=== PATIENT | male | born 1940 | race Caucasian/White ===

== ENCOUNTER → 2023-07-24 12:49 | Outpatient (REF) | payer MEDICARE, OTHER, SELFPAY | LOC: RCS 12:49 | PROVIDERS: ATTENDING PHYSICIAN Internal Medicine Interventional Cardiology; FAMILY PHYSICIAN Family Medicine | DX: I35.0 Nonrheumatic aortic (valve) stenosis (principal) | CPT/HCPCS: 93306 ==

== ENCOUNTER 2023-09-24 16:22 | Emergency (ER) | payer SELFPAY ==
[2023-09-24 16:34] VITALS: BP 155/74
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
== END 2023-09-24 18:05 | disposition home or self-care (01) ==
LOC: EMR 16:22
PROVIDERS: EMERGENCY PHYSICIAN Emergency Medicine; FAMILY PHYSICIAN Family Medicine
DX: S13.4XXA Sprain of ligaments of cervical spine, initial encounter (principal); V47.5XXA Car driver injured in collision with fixed or stationary object in traffic accident, initial encounter; I25.10 Atherosclerotic heart disease of native coronary artery without angina pectoris; I10 Essential (primary) hypertension; E78.00 Pure hypercholesterolemia, unspecified; E11.9 Type 2 diabetes mellitus without complications; Z86.73 Personal history of transient ischemic attack (TIA), and cerebral infarction without residual deficits
CPT/HCPCS: 99284; 70450; 72125

== ENCOUNTER 2024-05-19 13:56 | Emergency (ER) | payer OTHER, MEDICARE, SELFPAY ==
[2024-05-19] VITALS (7 sets, daily range): BP systolic 113–161; BP diastolic 68–98; BMI 23.5
[2024-05-19 14:22] LABS: % Basophils 0.4 % (0-2); % Eosinophils 1.4 % (0-6); % Immature Granulocytes 0.8 % (0-0.5); % Lymphocytes 15.5 % (20.5-51.1); % Monocytes 6.4 % (1.7-9.3); % Neutrophils 75.5 % (42.2-75.2); Absolute Eosinophils 0.1 10^3/uL (0-0.7); Absolute Immature Granulocytes 0.1 10^3/uL (0-0.05); Absolute Lymphocytes 1.2 10^3/uL (1.2-3.4); Absolute Monocytes 0.5 10^3/uL (0.1-0.6); Absolute Neutrophils 5.8 10^3/uL (1.4-6.5); Hematocrit 39.1 % (39.0-52.0); Hemoglobin 13.2 g/dL (13.0-18.0); Mean Corp Hgb Conc. 33.8 g/dL (33.0-37.0); Mean Corpuscular Hgb 29.5 pg (27.0-31.0); Mean Corpuscular Volume 87.3 fL (80.0-94.0); Mean Platelet Volume 9.8 fL (7.4-10.4); Nucleated Red Blood Cells % 0 % (-); Platelet Count 259 10^3/uL (130-400); Red Blood Cell Count 4.48 10^6/uL (4.70-6.10); Red Cell Dist. Width 13.4 % (11.5-14.5); White Blood Cell Count 7.7 10^3/uL (4.8-10.8)
[2024-05-19 14:40] LABS: ALT (SGPT) 24 U/L (0-50); AST (SGOT) 26 U/L (17-59); Albumin 4.1 g/dl (3.5-5.0); Alkaline Phosphatase 77 U/L (38-126); Blood Urea Nitrogen 27 mg/dl (9-20); Calcium 10.2 mg/dl (8.4-10.2); Carbon Dioxide 18 mmol/L (22-30); Chloride 104 mmol/L (98-107); Glucose 292 mg/dl (70-99); Potassium 4.1 mmol/L (3.5-5.1); Sodium 138 mmol/L (135-145); Total Bilirubin 1.3 mg/dl (0.2-1.3); Total Protein 7.1 g/dl (6.3-8.2); eGFR > 60.00
--- NOTE | 2024-05-19 16:23 | ED.GENMED ---
History of Present Illness
General
Chief Complaint: Abdominal Symptoms
Source: patient
Exam Limitations: none
Time Seen by Provider: 05/19/24 15:44
Nursing documentation reviewed up to this point in time: agreed with
History of Present Illness
History of Present Illness:
83-year-old male presents emergency ferment due to nausea vomiting diarrhea for 4 days. He was seen at urgent care, and sent to the emergency department.
Past History
Past History
ED Past Medical History: CAD, HTN, Hypercholesterolemia and NIDDM
ED Past Surgical History: Cardiac
Social History
Tobacco: Non-smoker
Alcohol: None
Drug: None
Personal: Single
Living: alone
Employment: Retired
Family History
Family History: Other (Noncontributory)
Review of Systems
Review of Systems
Allergies reviewed?: Yes
All Other Systems: Not applicable
Constitutional: Reports no symptoms
EENT: Reports no symptoms
Respiratory: Reports no symptoms
Cardiac: Reports no symptoms
ABD/GI: Reports nausea, vomiting and diarrhea
: Reports no symptoms
Musculoskeletal: Reports no symptoms
Skin: Reports no symptoms
Neurological: Reports no symptoms
Endocrine: Reports no symptoms
Hematologic/Lymphatic: Reports no symptoms
Psychiatric: Reports no symptoms
Phy Exam
Physical Exam
Physical Exam:
Physical Exam
General: no apparent distress, not acutely ill
Neck: supple. no meningeal signs. normal posterior pharynx
Heart: s1/s2 regular rate and rhythm, no murmur. equal radial
pulses.
HEENT: Pupils equal round reactive to light, EOMI
Lungs: no acute respiratory distress. clear bilaterally
Abdomen: normal bowel sounds. not tender. no CVAT
Neuro: alert and oriented. no focal neurological deficits cranial nerves II through XII intact
Skin: no rash
Psychiatric: well kept. interactive and cooperative
Extremities: no edema. no calf tenderness. negative homans. good distal pulses
Course
Orders/Labs/Results
Orders:
Orders
05/19/24 14:14
Complete Blood Count/With Diff Urgent
Comprehensive Metabolic Panel Urgent
05/19/24 16:22
IV Insert/Care/Rem.- Treatment PRN
0.9% Sodium Chloride 250 ml [Nss] 250 ml IV BOLUS
05/19/24 16:23
0.9% Sodium Chloride 500 ml [Nss] 500 ml IV BOLUS
Abnormal Lab Results
05/19/24
14:14
RBC 4.48 L 10^6/uL
(4.70-6.10)
Abs Immat Gran (auto) 0.1 H 10^3/uL
(0-0.05)
Immature Gran % 0.8 H %
(0-0.5)
Neutrophils % 75.5 H %
(42.2-75.2)
Lymphocytes % 15.5 L %
(20.5-51.1)
Carbon Dioxide 18 L mmol/L
(22-30)
BUN 27 H mg/dl
(9-20)
Glucose 292 H mg/dl
(70-99)
05/19/24 14:14
05/19/24 14:14
Vital Signs
Initial and Last Documented VS:
Initial Vital Signs
Temp Pulse Resp BP Pulse Ox
97.6 F 103 18 113/73 97
05/19/24 14:00 05/19/24 14:00 05/19/24 14:00 05/19/24 14:00 05/19/24 14:00
Last Documented Vital Signs
Temp Pulse Resp BP Pulse Ox
97.6 F 103 18 126/68 96
05/19/24 14:00 05/19/24 14:00 05/19/24 14:00 05/19/24 19:00 05/19/24 19:00
MDM/Problems Addressed
Differential Diagnosis Includes:
Viral gastroenteritis, electrolyte deficiency
MDM/Problems Addressed:
83-year-old male with nausea vomiting diarrhea. Abdomen exam benign. Vital signs stable. Stable for discharge.
Chronic conditions affecting care: DM
*Pulse Oximetry
Patient hypoxic: no
*Critical Care Note
Total Time (30-74mins, 75-104mins- exclusive of procedures): Not Applicable
Data Reviewed
Review of Other/Old Records Reveals: Labs
Source: records (creatinine 1.3 on 07/01/21)
Patient Management
Social determinants of health affecting care: Living situation and Strong social support
Escalation/DeEscalation of care consider admission/obs:
admit not indicated
ED Attending Note
-
Portions of this chart may have been created with voice recognition software.� Occasional wrong word or��sound alike� substitutions may have occurred due to the inherent limitations of voice recognition software.
Discharge Plan
Departure
Patient Disposition: Home (Routine Discharge)
Date of Disposition: 05/19/24
Time of Disposition: 19:40
Patient with high blood pressure during this ER visit?: Yes
Condition: Good
Discharge Problem:
Nausea and vomiting
Instructions: Diarrhea in teens and adults, Nausea and Vomiting, Adult (DC), BLOOD PRESSURE
Prescriptions:
No Action
atorvastatin 40 MG tablet
40 mg PO HS
aspirin 325 MG tablet
325 mg PO HS
nitroglycerin 0.4 MG tablet, sublingual
0.4 mg sublingual [id number] PRN (Reason: chest pain)
dutasteride 0.5 MG capsule
0.5 mg PO HS
metformin 1,000 MG tablet extended release 24hr
1,000 mg PO BID
fenofibric acid (choline) 135 MG capsule,delayed release(DR/EC)
135 mg PO DAILY
furosemide 40 MG tablet
40 mg PO Q48H
Patient Comments:
Patient takes 40 mg alternating every other day with 20 mg
terazosin 5 MG capsule
5 mg PO HS
insulin glargine [Lantus U-100 Insulin] 100 UNIT/ML solution
30 unit SQ DAILY
venlafaxine [Effexor XR] 150 MG capsule,extended release 24hr
225 mg PO DAILY
omeprazole 20 MG capsule,delayed release(DR/EC)
20 mg PO DAILY
ezetimibe [Zetia] 10 MG tablet
10 mg PO DAILY
Benazepril Hcl 40 MG Tablet
40 mg PO DAILY
Insulin Aspart [Novolog] 100 UNIT/ML Vial
12 unit SQ DAILY
eszopiclone [Lunesta] 2 MG tablet
2 mg PO HSPRN PRN (Reason: sleep)
furosemide 40 MG tablet
20 mg PO Q48H
Insulin Aspart [Novolog] 100 UNIT/ML Vial
4 unit SQ .DINNER
carvedilol 6.25 MG tablet
6.25 mg PO BID Qty: 180 5RF
isosorbide mononitrate 30 MG tablet extended release 24 hr
30 mg PO DAILY Qty: 90 5RF
Referrals:
Zahida Garcia DO [Family Provider] - Call in 1-3 days for appt
Interventions
Interventions:
*Risk Screen - Suicide Last Done: 05/19/24 14:00
*General Assessment Last Done: 05/19/24 14:00
*Neglect/Abuse Screening Last Done: 05/19/24 14:00
*ED- Fall Risk Assessment Last Done: 05/19/24 16:31
*ED COVID-19 Vaccine History Last Done: 05/19/24 14:00
[id number] Assessment Last Done: 05/19/24 16:32
Discharge Date and Time
Print Language: BULGARIAN
[2024-05-19] MEDS: NSS 500 IV (16:33)
[2024-05-19] MEDS: ZOFRAN 4 MG IV (19:52)
[2024-05-19] MEDS: ZOFRAN ODT (ORALLY DISINTEGRATING) 4 MG PO (19:59)
== END 2024-05-19 20:11 | disposition home or self-care (01) ==
LOC: EMR 13:56
PROVIDERS: Emergency Medicine; EMERGENCY PHYSICIAN Emergency Medicine; FAMILY PHYSICIAN Family Medicine
DX: R11.2 Nausea with vomiting, unspecified (principal); I25.10 Atherosclerotic heart disease of native coronary artery without angina pectoris; I10 Essential (primary) hypertension; E78.00 Pure hypercholesterolemia, unspecified; E11.9 Type 2 diabetes mellitus without complications
CPT/HCPCS: 96374; 96361; 99284; 80053; 85025

== ENCOUNTER 2024-12-25 20:15 | Inpatient (IN) | payer MEDICARE, OTHER, SELFPAY ==
[2024-12-25] VITALS (8 sets, daily range): BP systolic 151–181; BP diastolic 71–150
--- NOTE | 2024-12-25 16:27 | ED.GENMED ---
History of Present Illness
<AMANDA Perez - Last Filed: 12/25/24 21:00>
General
Chief Complaint: Failure to Thrive
Source: ambulance crew
Exam Limitations: none
Time Seen by Provider: 12/25/24 16:27
Nursing documentation reviewed up to this point in time: agreed with
History of Present Illness
History of Present Illness:
Patient is a 4-year-old male with past medical history of hyperlipidemia hypertension CAD, stent, pacemaker, type 2 diabetes chronic kidney disease stage II, brought by EMS. EMS reports patient apparently called 911 multiple times however they were
not able to get a hold of patient. Police were called to scene along with EMS. Patient was found in extreme dirty and poor conditions with feces throughout. Patient apparently had called 911 because he has had nausea vomiting diarrhea. He does
not believe his phone is working. Patient presents awake alert oriented. He reports he had diarrhea and vomiting since Monday. He does live alone. He denies any abdominal pain. He denies any chest pain. Sometimes he feels short of breath with
walking. He feels mildly nauseous now.
Past History
<AMANDA Perez - Last Filed: 12/25/24 21:00>
Past History
ED Past Medical History: CAD, HTN, Hypercholesterolemia and NIDDM
ED Past Surgical History: Cardiac
Social History
Tobacco: Non-smoker
Alcohol: None
Drug: None
Personal: Single
Living: alone
Employment: Retired
Family History
Family History: Other (Noncontributory)
Phy Exam
<AMANDA Perez - Last Filed: 12/25/24 21:00>
General Physical Exam
General Presentation: no apparent distress
General age: appears stated age
General Skin: warm and dry
General Habitus: elderly
General Mental: alert
General Hydration: dry mucous membranes
Cardiovascular Exam
Cardiovascular Exam: regular rate/rhythm and normal peripheral pulses
Pulmonary Exam
Pulmonary Exam: lungs clear and no respiratory distress
Neurological Exam
Neurological Exam: alert, oriented x3, no motor deficits and no sensory deficits
Musculoskeletal Exam
Musculoskeletal Exam: full ROM
Skin Exam
Skin Exam: normal color and warm/dry
Psychiatric Exam
Psychiatric Exam: normal mood/affect
Course
<AMANDA Perez - Last Filed: 12/25/24 21:00>
Orders/Labs/Results
Orders:
Orders
12/25/24
Electrocardiogram (*1) Stat
Comment: DONE EMR
12/25/24 Dinner
Clear Liquid
At Your Request: Full Participation
12/25/24 16:33
IV Insert/Care/Rem.- Treatment PRN
0.9% Sodium Chloride 1000 ml [Nss] 1,000 ml IV BOLUS
12/25/24 16:37
CPK [Creatine Phosphokinase] Urgent
Complete Blood Count/With Diff Urgent
Comprehensive Metabolic Panel Urgent
12/25/24 16:38
Case Management Consult ONCE
Case Management Consult: Discharge Planning
Requested By:: NURSING
12/25/24 16:46
Troponin I Urgent
12/25/24 16:48
Ondansetron Injectable [Zofran] 4 mg IV NOW STA
12/25/24 16:52
CT Head W/o Iv Contrast Urgent
Comment:
Reason For Exam: headache
12/25/24 16:58
Urinalysis Reflex To Culture Urgent
Date Specimen was Collected: 12/25/24
Time Specimen was Collected: 16:56
Urine Microscopic Reflex Cult Urgent
12/25/24 17:01
Straight Cath As Directed
Frequency: One time now
12/25/24 18:09
Aspirin Chewable [Low Strength Aspirin] 324 mg PO NOW STA
12/25/24 18:25
Electrocardiogram (*1) Stat
Reason for Study: Other
Other Reason for Exam: chest pain
EKG- Treatment ONCE
12/25/24 19:56
Admit/Transfer Patient As Directed
Co-Sign Provider:
Level of Care: Inpatient admission
Assign to:: Telemetry
Physician / Group: gary
Diagnosis: gastroenteritis
Reason for Telemetry: Arrhythmia
Date to Stop Telemetry: 12/28/24
Time to Stop Telemetry: 11:00
Reason for Hospitalization: gastroenteritis
Expected length of stay greater than two midnights?: Yes
ELOS- Estimated Length of Stay in days: 2
I certify the patient meets the requirements for IP care: Yes
Code Status As Directed
Resuscitation Status: Full Code
PRN Pain Medication Management As Directed
May give lesser potent ordered pain med per pt: Yes
preference::
Protocol:: Medication orders for pain may be administered in a
manner that supports deferring to patient preference
when the pt is:
- Requesting an ordered lesser potent pain medication.
Least to most potent pain medications are defined
as: acetaminophen < NSAID < tramadol < opioids
(morphine, oxycodone, hydromorphone).
- Requesting a lesser dose of the same medication IF
ORDERED.
- Requesting a less intrusive route of administration
if both routes are prescribed by the provider (PO <
IV).
12/25/24 20:04
CR Chest - 2 Views Urgent
Comment:
Reason For Exam: shortness of breath
12/25/24 20:51
Troponin I Q6H
Acetaminophen [Tylenol] 650 mg PO Q4HPRN PRN
Dextrose 50%-Water [Dextrose 50% Syringe] 12.5 grams IV [id number] PRN
Glucagon [GlucaGen] 1 mg IM PRN PRN
Heparin 5,000 units SC Q12
Ondansetron Injectable [Zofran] 4 mg IV Q6HPRN PRN
12/25/24 20:51
Norovirus by PCR Routine
SMITH Source: Feces/Stool
Specimen Description:
STOOL [C difficile Antigen & Toxins] Routine
SMITH Source: Feces/Stool
Specimen Description:
Stool Culture Routine
SMITH Source: Feces/Stool
Specimen Description:
Activity As Directed
Activity Level: As Tolerated
Bedside Glucose Monitoring As Directed
Frequency: AC&HS
Additional Instructions:: Change to q6h if pt on TPN, tube feeding or not eating
Vital Signs As Directed
Frequency: Per unit guidelines
DX Deep Vein Thrombosis Video Routine
12/25/24 22:00
Insulin Glargine Lantus [Lantus] 10 units Subcutaneous Insulin Syringe [Syringe-Insulin] 0 unit SC HS
12/26/24 02:51
Troponin I Q6H
12/26/24 06:00
Complete Blood Count/With Diff IN AM
Comprehensive Metabolic Panel IN AM
Glycohemoglobin (HgbA1c) IN AM
12/26/24 07:30
Insulin Aspart Corrective Low [Novolog Flexpen-Low Resistance] See Protocol SC AC
12/26/24 08:51
Troponin I Q6H
12/26/24 14:51
Troponin I Q6H
12/28/24 11:00
DC Protocol for Telemetry ONCE
Abnormal Lab Results
12/25/24 12/25/24 12/25/24
16:37 16:46 16:58
MCHC 32.7 L g/dL
(33.0-37.0)
Abs Immat Gran (auto) 0.1 H 10^3/uL
(0-0.05)
Absolute Neuts (auto) 8.2 H 10^3/uL
(1.4-6.5)
Absolute Lymphs (auto) 1.0 L 10^3/uL
(1.2-3.4)
Immature Gran % 0.6 H %
(0-0.5)
Neutrophils % 83.4 H %
(42.2-75.2)
Lymphocytes % 10.0 L %
(20.5-51.1)
BUN 21 H mg/dl
(9-20)
Glucose 293 H mg/dl
(70-99)
Troponin I 0.035 H* ng/ml
Urine Ketones 2+ A
(Negative)
Ur Occult Blood Reflex 2+ A
(Negative)
Urine RBC 3-6 A /HPF
(0-2)
Urine Bacteria (Reflex) Few A
(Negative)
Urine Glucose 4+ A
(Negative)
Urine Albumin (Reflex) 3+ A
(Neg - Trace)
12/25/24 16:37
12/25/24 16:37
Vital Signs
Initial and Last Documented VS:
Initial Vital Signs
Temp Pulse Resp BP Pulse Ox
98.0 F 77 18 181/87 96
12/25/24 16:29 12/25/24 16:29 12/25/24 16:29 12/25/24 16:29 12/25/24 16:29
Last Documented Vital Signs
Temp Pulse Resp BP Pulse Ox
98.0 F 65 27 168/96 97
12/25/24 16:29 12/25/24 19:45 12/25/24 19:45 12/25/24 18:28 12/25/24 19:45
Fresh Food Manager consulted with Physician
Fresh Food Manager consulted with physician?: Yes
Name of Physician Consulted: [email or web address]
<Christopher Delgado, DO - Last Filed: 12/25/24 17:37>
Orders/Labs/Results
Orders:
Orders
12/25/24
Electrocardiogram (*1) Stat
Comment: DONE EMR
12/25/24 Dinner
Clear Liquid
At Your Request: Full Participation
12/25/24 16:33
IV Insert/Care/Rem.- Treatment PRN
0.9% Sodium Chloride 1000 ml [Nss] 1,000 ml IV BOLUS
12/25/24 16:37
CPK [Creatine Phosphokinase] Urgent
Complete Blood Count/With Diff Urgent
Comprehensive Metabolic Panel Urgent
12/25/24 16:38
Case Management Consult ONCE
Case Management Consult: Discharge Planning
Requested By:: NURSING
12/25/24 16:46
Troponin I Urgent
12/25/24 16:48
Ondansetron Injectable [Zofran] 4 mg IV NOW STA
12/25/24 16:52
CT Head W/o Iv Contrast Urgent
Comment:
Reason For Exam: headache
12/25/24 16:58
Urinalysis Reflex To Culture Urgent
Date Specimen was Collected: 12/25/24
Time Specimen was Collected: 16:56
Urine Microscopic Reflex Cult Urgent
12/25/24 17:01
Straight Cath As Directed
Frequency: One time now
12/25/24 18:09
Aspirin Chewable [Low Strength Aspirin] 324 mg PO NOW STA
12/25/24 18:25
Electrocardiogram (*1) Stat
Reason for Study: Other
Other Reason for Exam: chest pain
EKG- Treatment ONCE
12/25/24 19:56
Admit/Transfer Patient As Directed
Co-Sign Provider:
Level of Care: Inpatient admission
Assign to:: Telemetry
Physician / Group: gary
Diagnosis: gastroenteritis
Reason for Telemetry: Arrhythmia
Date to Stop Telemetry: 12/28/24
Time to Stop Telemetry: 11:00
Reason for Hospitalization: gastroenteritis
Expected length of stay greater than two midnights?: Yes
ELOS- Estimated Length of Stay in days: 2
I certify the patient meets the requirements for IP care: Yes
Code Status As Directed
Resuscitation Status: Full Code
PRN Pain Medication Management As Directed
May give lesser potent ordered pain med per pt: Yes
preference::
Protocol:: Medication orders for pain may be administered in a
manner that supports deferring to patient preference
when the pt is:
- Requesting an ordered lesser potent pain medication.
Least to most potent pain medications are defined
as: acetaminophen < NSAID < tramadol < opioids
(morphine, oxycodone, hydromorphone).
- Requesting a lesser dose of the same medication IF
ORDERED.
- Requesting a less intrusive route of administration
if both routes are prescribed by the provider (PO <
IV).
12/25/24 20:04
CR Chest - 2 Views Urgent
Comment:
Reason For Exam: shortness of breath
12/25/24 20:51
Troponin I Q6H
Acetaminophen [Tylenol] 650 mg PO Q4HPRN PRN
Dextrose 50%-Water [Dextrose 50% Syringe] 12.5 grams IV [id number] PRN
Glucagon [GlucaGen] 1 mg IM PRN PRN
Heparin 5,000 units SC Q12
Ondansetron Injectable [Zofran] 4 mg IV Q6HPRN PRN
12/25/24 20:51
Norovirus by PCR Routine
SMITH Source: Feces/Stool
Specimen Description:
STOOL [C difficile Antigen & Toxins] Routine
SMITH Source: Feces/Stool
Specimen Description:
Stool Culture Routine
SMITH Source: Feces/Stool
Specimen Description:
Activity As Directed
Activity Level: As Tolerated
Bedside Glucose Monitoring As Directed
Frequency: AC&HS
Additional Instructions:: Change to q6h if pt on TPN, tube feeding or not eating
Vital Signs As Directed
Frequency: Per unit guidelines
DX Deep Vein Thrombosis Video Routine
12/25/24 22:00
Insulin Glargine Lantus [Lantus] 10 units Subcutaneous Insulin Syringe [Syringe-Insulin] 0 unit SC HS
12/26/24 02:51
Troponin I Q6H
12/26/24 06:00
Complete Blood Count/With Diff IN AM
Comprehensive Metabolic Panel IN AM
Glycohemoglobin (HgbA1c) IN AM
12/26/24 07:30
Insulin Aspart Corrective Low [Novolog Flexpen-Low Resistance] See Protocol SC AC
12/26/24 08:51
Troponin I Q6H
12/26/24 14:51
Troponin I Q6H
12/28/24 11:00
DC Protocol for Telemetry ONCE
Abnormal Lab Results
12/25/24 12/25/24 12/25/24
16:37 16:46 16:58
MCHC 32.7 L g/dL
(33.0-37.0)
Abs Immat Gran (auto) 0.1 H 10^3/uL
(0-0.05)
Absolute Neuts (auto) 8.2 H 10^3/uL
(1.4-6.5)
Absolute Lymphs (auto) 1.0 L 10^3/uL
(1.2-3.4)
Immature Gran % 0.6 H %
(0-0.5)
Neutrophils % 83.4 H %
(42.2-75.2)
Lymphocytes % 10.0 L %
(20.5-51.1)
BUN 21 H mg/dl
(9-20)
Glucose 293 H mg/dl
(70-99)
Troponin I 0.035 H* ng/ml
Urine Ketones 2+ A
(Negative)
Ur Occult Blood Reflex 2+ A
(Negative)
Urine RBC 3-6 A /HPF
(0-2)
Urine Bacteria (Reflex) Few A
(Negative)
Urine Glucose 4+ A
(Negative)
Urine Albumin (Reflex) 3+ A
(Neg - Trace)
12/25/24 16:37
12/25/24 16:37
Vital Signs
Initial and Last Documented VS:
Initial Vital Signs
Temp Pulse Resp BP Pulse Ox
98.0 F 77 18 181/87 96
12/25/24 16:29 12/25/24 16:29 12/25/24 16:29 12/25/24 16:29 12/25/24 16:29
Last Documented Vital Signs
Temp Pulse Resp BP Pulse Ox
98.0 F 65 27 168/96 97
12/25/24 16:29 12/25/24 19:45 12/25/24 19:45 12/25/24 18:28 12/25/24 19:45
<AMANDA Perez - Last Filed: 12/25/24 21:00>
MDM/Problems Addressed
Differential Diagnosis Includes:
Not limited to acute dehydration electrolyte abnormality rhabdomyolysis
MDM/Problems Addressed:
As documented patient is an 84-year-old male who presented via EMS. Patient presented awake alert for nausea vomiting diarrhea for the past several days. Patient is not taking any of his medicine. EMS reports patient's house is in very poor
condition there was feces everywhere. Since awake alert. He has no complaints of chest pain or shortness of breath. His EKG on arrival was concerning /slight ST elevation however no chest pain and negative cardiac troponin. Regarding EKG
findings we did speak with customs port director and he had similar EKGs in the office from August 2024. He is noted to have an RCA occlusion that is unable to be intervened. Patient presents dry on exam BUN minimally elevated at 21 with a normal creatinine
normal white count afebrile. Patient was hydrated here and given nausea medicine as he was nauseous on arrival. Urinalysis negative. Case management was involved as EMS reports patient house is very dirty and patient was found in poor hygienic
conditions. As per case management family is aware and they have been trying to get him to move and get more help however he does not want to move out of this house currently. Will likely need case management for continued assistance for discharge
planning.
Will admit for acute hydration
Chronic conditions affecting care:
CAD pacemaker hypertension hyperlipidemia Parish L
<AMANDA Perez - Last Filed: 12/25/24 21:00>
*Radiology
Radiology exam reviewed: radiology read reviewed
*Pulse Oximetry
SaO2: 96
Oxygen Mode of Delivery: Room air
Patient hypoxic: no
*EKG
Interpreted by ED Provider?: Yes
Interpretation: abnormal
Heart Rate: 95
Rate: normal
Rhythm: sinus and other (Atrial sensed V paced)
Ischemia: ST elevation
*Critical Care Note
Total Time (30-74mins, 75-104mins- exclusive of procedures): Not Applicable
Data Reviewed
Review of Other/Old Records Reveals: Labs
<AMANDA Perez - Last Filed: 12/25/24 21:00>
Patient Management
Discussion with other providers: Hydraulic Billet Maker (cardiology DR Brand )
ED Attending Note
<AMANDA Perez - Last Filed: 12/25/24 21:00>
-
Portions of this chart may have been created with voice recognition software.� Occasional wrong word or��sound alike� substitutions may have occurred due to the inherent limitations of voice recognition software.
<Christopher Delgado, DO - Last Filed: 12/25/24 17:37>
ED Attending Note
Patient seen and examined by attending physician: Yes
I performed the substantive portion of visit, reviewed & personally made and approve the management plan that is documented in note by myself or ORIN.: Yes
ED Attending Note:
I have seen and evaluated the patient with a [id number] encounter. I have spoken to the advance practicer provider and involved in the medical history, the physical exam, medical decision making.
Evaluation and management service: agree unless noted differently below.
Results interpretation: agree unless noted differently below.
Focused HPI: 84-year-old male presenting for evaluation of vomiting and diarrhea. Per EMS, the house is in disarray patient was covered in stool. They indicated they were going to call the Department of aging
Physical exam: Heart regular rate and rhythm. Mildly disheveled. Abdomen soft and nontender
Medical Decision Making: The EKG is concerning. He does have mild ST elevations inferiorly but patient denies any chest pain. There is concern that his nausea could be an ACS equivalent. Troponin pending billable otherwise discussed case with
cardiology. Patient will require admission given that he appears to be unable to care for himself
Discharge Plan
Departure
Patient Disposition: Admit
Date of Disposition: 12/25/24
Time of Disposition: 19:32
Admit to: Telemetry
Admit to doctor: hospitalist
Presentation/result/management discussed w/ accepting MD/DO: Hospitalist
Patient with high blood pressure during this ER visit?: Yes
Condition: Fair
Covid-19: Not Applicable
Discharge Problem:
Nausea & vomiting, Acute dehydration
Interventions
Interventions:
*Risk Screen - Suicide Last Done: 12/25/24 16:29
*General Assessment Last Done: 12/25/24 16:29
*Neglect/Abuse Screening Last Done: 12/25/24 16:29
*ED- Fall Risk Assessment Last Done: 12/25/24 16:29
*ED COVID-19 Vaccine History Last Done: 12/25/24 16:29
*ED Influenza Vaccine History Last Done: 12/25/24 16:29
[2024-12-25] MEDS: NSS 1000 IV (16:44)
[2024-12-25 16:54] LABS: Hematocrit 44.7 % (39.0-52.0); Hemoglobin 14.6 g/dL (13.0-18.0); Mean Corp Hgb Conc. 32.7 g/dL (33.0-37.0); Mean Corpuscular Volume 90.3 fL (80.0-94.0); Nucleated Red Blood Cells % 0 % (-); Platelet Count 243 10^3/uL (130-400); Red Cell Dist. Width 13.5 % (11.5-14.5)
[2024-12-25] MEDS: ZOFRAN 4 MG IV (16:59)
[2024-12-25 17:04] LABS: Urine Character Clear (Clear)
[2024-12-25 17:12] LABS: Urine Squamous Cell 0-2 /LPF (Few)
[2024-12-25 17:13] LABS: ALT (SGPT) 26 U/L (0-50); AST (SGOT) 30 U/L (17-59); Albumin 4.6 g/dl (3.5-5.0); Alkaline Phosphatase 78 U/L (38-126); Blood Urea Nitrogen 21 mg/dl (9-20); Calcium 10.1 mg/dl (8.4-10.2); Carbon Dioxide 22 mmol/L (22-30); Chloride 105 mmol/L (98-107); Glucose 293 mg/dl (70-99); Potassium 3.7 mmol/L (3.5-5.1); Sodium 137 mmol/L (135-145); Total Protein 7.7 g/dl (6.3-8.2); eGFR > 60.00
[2024-12-25 17:13] LABS: Urine White Cell 0-2 /HPF (0-5)
[2024-12-25 17:36] LABS: Troponin I 0.035 ng/ml
--- NOTE | 2024-12-25 18:06 | EDCM ---
CM received consult, reviewed chart, met with pt bedside in ED and spoke to his nieces over the phone.
Pt lives alone in split level home, [address]. He has a dog, jaya silvestre.
Per EMS, house was in disarray with feces throughout home. Per nieces, he ran out of food for the dog, dog is not vaccinated and has not been groomed for a long time. They are trying to find a vet that can update vaccines so they can take him to a
kennel.
Per nieces, pt lived with his mother in this home, never or had children. Mother years ago and they have been trying to get him to move to a smaller, single level home. They said they toured about 30 homes but he was unable to
commit to moving. He also owns a home in [facility] and nieces do not believe money is a barrier to care.
Per triage note, EMS was notifiying [facility] on Aging, Adult Protective Services about condition of home.
Pt states he is independent in ADLs, personal care and ambulation. Does not use assistive device. Pt still drives.
Pt does not know who his PCP is.
He uses [facility] on [address]
Hx [facility] after previous admission
Discussed above with Linda, ED OVERHEAD CRANE TECHNICIAN. Pt's troponin is elevated, she is planning to request admission.
Vanessa Saleh and Loev are both available by phone and want to participate in discharge planning process.
CM will continue to follow for all discharge planning needs.
[2024-12-25] MEDS: LOW STRENGTH ASPIRIN 324 MG PO (18:16)
--- NOTE | 2024-12-25 19:40 | EDRN ---
Pt rang call [facility] requesting water, he states he hasn't had anything to drink since Monday d/t vomiting. Pt able to decipher that he is in [facility] and the month is December. Pt is unable to state the year. When asking pt about events
leading up to hospitalization, he is a poor historian and cannot recall why EMS/police came to his home.
--- NOTE | 2024-12-25 20:03 | HPS.HSE ---
Family Physician
-
Family Physician: Zahida Garcia
Chief Complaint
-
vomiting, diarrhea
History of Present Illness
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 EMS
reports patient called 911 multiple times but they were not able to get a hold of him. Police came to his house with EMS. They found him in extreme dirty and poor conditions with feces everywhere. Patient called 911 because of nausea and vomiting
and diarrhea. He does not believe his phone is working.
He has had diarrhea and vomiting for the past 5 days which is watery with some yellow color. Denies abdominal pain. Denies chest pain. He developed some shortness of breath over the past few days denies any significant cough. Denies any urinary
symptoms. He did have potato salad 3 to 4 days ago which did not taste as good as he expected.
Denies any recent antibiotic use.
He states that 5 days ago when his symptoms started his blood sugar was low and he stopped taking his insulin and had to take glucose tablets. He has not taken insulin since then.
Denies smoking or alcohol use.
Medical History
Past Medical History
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
Past Surgical History: Reports Other (Hernia repair, rectal fistula repair)
Social History
Tobacco: Non-smoker
Alcohol: None
Drug: None
Family History
Family History: Not pertinent
Allergies / Home Medications
Allergies reflects when Allergies were last updated in [facility].
Home Medications with original date entered in [employer]
Allergy/Medication List:
Allergies
Allergy/AdvReac Type Severity Reaction Status Date / Time
shellfish derived Allergy Mild Vomiting Verified 05/19/24 14:03
iodine Allergy Unknown Unknown Verified 05/19/24 14:03
Sulfa (Sulfonamide Allergy Unknown Unknown Verified 05/19/24 14:03
Antibiotics)
Home Medications
aspirin 325 mg tablet 325 mg PO HS 07/14/13
atorvastatin 40 mg tablet 40 mg PO HS 07/14/13
dutasteride 0.5 mg capsule 0.5 mg PO HS 07/14/13
fenofibric acid (choline) 135 mg capsule,delayed release 135 mg PO DAILY 07/14/13
metformin 1,000 mg tablet,extended release 24hr (osmotic) 1,000 mg PO BID 07/14/13
nitroglycerin 0.4 mg sublingual tablet 0.4 mg sublingual [id number] PRN chest pain 07/14/13
Benazepril Hcl 40 mg PO DAILY 05/19/21
Insulin Aspart [Novolog] 12 unit SQ DAILY 05/19/21
eszopiclone 2 mg tablet (Lunesta) 2 mg PO HSPRN PRN sleep 05/19/21
ezetimibe 10 mg tablet (Zetia) 10 mg PO DAILY 05/19/21
furosemide 40 mg tablet 40 mg PO Q48H 05/19/21
insulin glargine 100 unit/mL subcutaneous solution (Lantus U-100 Insulin) 30 unit SQ DAILY 05/19/21
omeprazole 20 mg capsule,delayed release 20 mg PO DAILY 05/19/21
terazosin 5 mg capsule 5 mg PO HS 05/19/21
venlafaxine 150 mg capsule,extended release 24 hr (Effexor XR) 225 mg PO DAILY 05/19/21
Insulin Aspart [Novolog] 4 unit SQ .DINNER 07/01/21
carvedilol 6.25 mg tablet 6.25 mg PO BID #180 tabs 07/01/21
furosemide 40 mg tablet 20 mg PO Q48H 07/01/21
isosorbide mononitrate 30 mg tablet,extended release 24 hr 30 mg PO DAILY #90 tabs 07/01/21
ondansetron 4 mg disintegrating tablet 4 mg PO TID PRN nausea and vomiting 4 days #10 tabs 05/19/24
Review of Systems
-
History Source: Patient
A 12 point ROS was completed and negative except as noted: Yes
Physical Exam
Vital Signs
Vital Signs
Temp Pulse Resp BP Pulse Ox
98.0 F 65 27 168/96 97
12/25/24 16:29 12/25/24 19:45 12/25/24 19:45 12/25/24 18:28 12/25/24 19:45
Physical Exam
General: Well Developed, Well Nourished and No Apparent Distress
HEENT: NormoCephalic, Moist mucous membranes and Atraumatic
Respiratory: Clear
Cardiac: S1/S2 and Regular Rhythm; No Murmur or Rub
GI: Soft, Non Tender, Non Distended and Normal Bowel Sounds; No Organomegaly
Rectal: Deferred by Provider
Musculoskeletal: No Clubbing, No Cyanosis and No Edema
Skin: No Rash
Neuro: Nonfocal/grossly intact
Laboratory Results
-
12/25/24 16:37
12/25/24 16:37
Laboratory Results
Total Bilirubin 1.2 mg/dl (0.2-1.3) 12/25/24 16:37
AST 30 U/L (17-59) 12/25/24 16:37
ALT 26 U/L (0-50) 12/25/24 16:37
Alkaline Phosphatase 78 U/L (38-126) 12/25/24 16:37
Troponin I 0.035 ng/ml H* 12/25/24 16:46
Data Reviewed
-
Lab Data: Labs Reviewed by me
Old Records: Reviewed
Impression/Plan
-
IMPRESSION:
PLAN:
# Likely viral gastroenteritis
-Urinalysis unremarkable
-CT head shows no acute abnormality
- No signs of sepsis or fever
- N.p.o.
- IV fluids given
-Hold Lasix
- Zofran
- Stool studies if persistent diarrhea
- Clear liquid diet, advance as tolerated
# Nonischemic myocardial injury
# History of CAD status post stents
- Troponin 0.035, continue to trend
- EKG shows atrial sensed reticular paced rhythm with prolonged AV conduction, no ischemic changes visible
- Cardiology was notified who noted EKG looks similar to prior EKGs and patient has known RCA occlusion and not candidate for intervention
- Continue aspirin and statin
- Continue Coreg
- Hold Lasix
- Continue isosorbide mononitrate
# Hyperglycemia secondary to infection/insulin noncompliance
# Type 2 diabetes
- Blood sugar 293
- Continue Lantus reduced dose, 10 units for now
- Insulin sliding scale
- Hold metformin
# Dyspnea on exertion
- Check chest x-ray
Essential hypertension
Hyperlipidemia
- Continue Zetia
CKD 2
- Renal function at baseline
BPH
- Dutasteride
- Continue terazosin
History of skin cancer
Anxiety/depression
- Continue venlafaxine
Full code
DVT prophylaxis�heparin
Clear liquids
[2024-12-25 21:16] LABS: Glucose - Point of Care 206 mg/dl (70-99)
[2024-12-25] MEDS: LANTUS 0.1 UNITS SC (21:44)
[2024-12-25] MEDS: HEPARIN 5000 UNITS SC (21:44)
[2024-12-25 21:59] LABS: Troponin I 0.044 ng/ml
--- NOTE | 2024-12-25 22:18 | EDRN ---
unable to complete med rec as pt is a poor historian
[2024-12-26] VITALS (12 sets, daily range): BP systolic 109–187; BP diastolic 69–119; PULSE 81
[2024-12-26] MEDS: ZOFRAN 4 MG IV ×2 (02:52→09:33)
[2024-12-26 05:57] LABS: Hematocrit 39.8 % (39.0-52.0); Hemoglobin 13.4 g/dL (13.0-18.0); Mean Corp Hgb Conc. 33.7 g/dL (33.0-37.0); Mean Corpuscular Volume 88.2 fL (80.0-94.0); Nucleated Red Blood Cells % 0 % (-); Platelet Count 214 10^3/uL (130-400); Red Cell Dist. Width 13.5 % (11.5-14.5)
[2024-12-26 06:20] LABS: ALT (SGPT) 27 U/L (0-50); AST (SGOT) 30 U/L (17-59); Albumin 4.2 g/dl (3.5-5.0); Alkaline Phosphatase 66 U/L (38-126); Blood Urea Nitrogen 21 mg/dl (9-20); Calcium 9.7 mg/dl (8.4-10.2); Carbon Dioxide 22 mmol/L (22-30); Chloride 110 mmol/L (98-107); Estimated Creatinine Clearance 63 ml/min; Glucose 206 mg/dl (70-99); Potassium 3.9 mmol/L (3.5-5.1); Sodium 142 mmol/L (135-145); Total Protein 6.9 g/dl (6.3-8.2); eGFR > 60.00
[2024-12-26 06:53] LABS: Troponin I 0.042 ng/ml
[2024-12-26 07:37] LABS: Glucose - Point of Care 188 mg/dl (70-99)
[2024-12-26 08:48] LABS: Glycohemoglobin (HgbA1c) 7.8 % (4.0-5.9)
[2024-12-26 09:19] LABS: Troponin I 0.040 ng/ml
[2024-12-26] MEDS: HEPARIN 5000 UNITS SC (09:25)
[2024-12-26] MEDS: NOVOLOG FLEXPEN-LOW RESISTANCE SC (09:49)
[2024-12-26 12:31] LABS: Glucose - Point of Care 237 mg/dl (70-99)
--- NOTE | 2024-12-26 13:41 | PTCARENOTE ---
called report to [facility], let them know patient report sent up.
Pt resting comfortably in bed, oriented but sad about the news of his pet. Nieces at bedside visiting him. PRN zofran given for nausea per order. Pt had 1 bm this shift thus far
[2024-12-26] MEDS: NOVOLOG FLEXPEN-LOW RESISTANCE 2 UNITS SC ×2 (13:46→16:06)
[2024-12-26] MEDS: LASIX 40 MG IV (13:55)
[2024-12-26 15:27] LABS: Troponin I 0.034 ng/ml
[2024-12-26] MEDS: COMPAZINE 10 MG IV (15:56)
[2024-12-26 16:11] LABS: Glucose - Point of Care 241 mg/dl (70-99)
--- NOTE | 2024-12-26 16:13 | W.PN.HOSP.TC ---
Today's Communication/Plan
-
KUB
IV lasix
supportive care
Assessment / Plan
Assessment / Plan
Physical Exam
General: Well Developed, Well Nourished and No Apparent Distress
HEENT: NormoCephalic, Moist mucous membranes and Atraumatic
Respiratory: Clear
Cardiac: S1/S2 and Regular Rhythm; No Murmur or Rub
GI: Soft, Non Tender, Non Distended and Normal Bowel Sounds; No Organomegaly
Rectal: Deferred by Provider
Musculoskeletal: No Clubbing, No Cyanosis and No Edema
Skin: No Rash
Neuro: Nonfocal/grossly intact
PLAN:
# N/V/Diarrhea
- likely viral gastroenteritis
-F/u KUB
- Diarrhea resolved
- Urinalysis unremarkable
-CT head shows no acute abnormality
- No signs of sepsis or fever
- Cont CLD for today
- IV fluids given
-Hold Lasix
- Zofran
- Stool studies if persistent diarrhea
# Nonischemic myocardial injury
# History of CAD status post stents
- Troponin 0.035, continue to trend
- EKG shows atrial sensed reticular paced rhythm with prolonged AV conduction, no ischemic changes visible
- Cardiology was notified who noted EKG looks similar to prior EKGs and patient has known RCA occlusion and not candidate for intervention
- Continue aspirin and statin
- Continue Coreg
- Continue isosorbide mononitrate
#Noncardiogenic Pulmonary Edema
- IV lasix today
-resume po diuretic tomorrow
# Hyperglycemia secondary to infection/insulin noncompliance
# Type 2 diabetes
- Blood sugar 293
- Continue Lantus reduced dose, 10 units for now
- Insulin sliding scale
- Hold metformin
-aic 8.8
Essential hypertension
Hyperlipidemia
- Continue Zetia
CKD 2
- Renal function at baseline
BPH
- Dutasteride
- Continue terazosin
History of skin cancer
Anxiety/depression
- Continue venlafaxine
Full code
DVT prophylaxis�heparin
Clear liquids
Anticipated Discharge: 24 - 48 hours
Subjective/Interval History
-
Date of Service: December 26, 2024
No more diarrhea, mild nausea
Objective Data
-
Labs:
Laboratory Results
12/26/24
05:19
WBC 8.5
Hgb 13.4
Hct 39.8
Plt Count 214
Sodium 142
Potassium 3.9
Chloride 110 H
Carbon Dioxide 22
BUN 21 H
Creatinine 1.0
Glucose 206 H
Calcium 9.7
Total Bilirubin 1.0
AST 30
ALT 27
Alkaline Phosphatase 66
Vital Signs:
Vital Signs
Temp Pulse Resp BP Pulse Ox
97.6 F 88 18 186/99 99
12/26/24 14:39 12/26/24 14:39 12/26/24 14:39 12/26/24 14:39 12/26/24 14:39
I&O
12/25/24 12/26/24 12/27/24
06:59 06:59 06:59
Intake Total 240 / 240
Balance 240 / 240
Review of Systems
-
History Source: Patient
All other systems: Not reviewed unless documented
Data Reviewed
-
Diagnostic Radiology: Report Reviewed by me
CT Scan: Report Reviewed by me
Labs: Labs Reviewed by me
[2024-12-26] MEDS: SORBITRATE 30 MG PO (17:42)
[2024-12-26] MEDS: ELIQUIS 5 MG PO (21:21)
[2024-12-26] MEDS: COREG 6.25 MG PO (21:21)
[2024-12-26] MEDS: FLOMAX 0.4 MG PO (21:21)
[2024-12-26] MEDS: LANTUS 0.1 UNITS SC (21:39)
[2024-12-26] MEDS: EFFEXOR XR 75 MG PO (21:39)
[2024-12-26] MEDS: PROSCAR 5 MG PO (21:39)
[2024-12-26 21:40] LABS: Glucose - Point of Care 293 mg/dl (70-99)
[2024-12-27 03:10] VITALS: BP 155/89
[2024-12-27 07:00] VITALS: BP 120/62
[2024-12-27] MEDS: COREG 6.25 MG PO ×2 (08:56→20:12)
[2024-12-27] MEDS: FLOMAX 0.4 MG PO ×2 (08:56→20:12)
[2024-12-27] MEDS: ELIQUIS 5 MG PO ×2 (08:56→20:11)
[2024-12-27] MEDS: ZETIA 10 MG PO (08:57)
[2024-12-27] MEDS: EFFEXOR XR 150 MG PO (08:57)
[2024-12-27] MEDS: LASIX 40 MG PO (08:57)
[2024-12-27] MEDS: ZESTRIL 20 MG PO (08:57)
[2024-12-27] MEDS: TRICOR 145 MG PO (08:57)
[2024-12-27] MEDS: SORBITRATE 30 MG PO (08:58)
[2024-12-27 09:10] LABS: Glucose - Point of Care 231 mg/dl (70-99)
[2024-12-27] MEDS: NOVOLOG FLEXPEN-LOW RESISTANCE 2 UNITS SC (09:10)
[2024-12-27 09:36] LABS: Hematocrit 40.3 % (39.0-52.0); Hemoglobin 13.5 g/dL (13.0-18.0); Mean Corp Hgb Conc. 33.5 g/dL (33.0-37.0); Mean Corpuscular Volume 89.2 fL (80.0-94.0); Platelet Count 216 10^3/uL (130-400); Red Cell Dist. Width 13.4 % (11.5-14.5)
[2024-12-27 10:11] LABS: ALT (SGPT) 27 U/L (0-50); AST (SGOT) 24 U/L (17-59); Albumin 4.2 g/dl (3.5-5.0); Alkaline Phosphatase 77 U/L (38-126); Blood Urea Nitrogen 25 mg/dl (9-20); Calcium 9.9 mg/dl (8.4-10.2); Carbon Dioxide 25 mmol/L (22-30); Chloride 104 mmol/L (98-107); Estimated Creatinine Clearance 49 ml/min; Glucose 255 mg/dl (70-99); Potassium 3.4 mmol/L (3.5-5.1); Sodium 135 mmol/L (135-145); Total Protein 7.2 g/dl (6.3-8.2); eGFR 54.17
[2024-12-27 11:00] VITALS: BP 114/66
[2024-12-27 12:02] LABS: Glucose - Point of Care 342 mg/dl (70-99)
[2024-12-27] MEDS: NOVOLOG FLEXPEN-LOW RESISTANCE 4 UNITS SC (12:37)
--- NOTE | 2024-12-27 12:55 | W.PN.HOSP.TC ---
Today's Communication/Plan
-
Adv to LRD
Assessment / Plan
Assessment / Plan
Physical Exam
General: Well Developed, Well Nourished and No Apparent Distress
HEENT: NormoCephalic, Moist mucous membranes and Atraumatic
Respiratory: Clear
Cardiac: S1/S2 and Regular Rhythm; No Murmur or Rub
GI: Soft, Non Tender, Non Distended and Normal Bowel Sounds; No Organomegaly
Rectal: Deferred by Provider
Musculoskeletal: No Clubbing, No Cyanosis and No Edema
Skin: No Rash
Neuro: Nonfocal/grossly intact
PLAN:
# N/V/Diarrhea, resolved
- likely viral gastroenteritis
-F/u KUB�unremarkable for evidence of SBO or pneumoperitoneum
- Diarrhea resolved
- Urinalysis unremarkable
-CT head shows no acute abnormality
- No signs of sepsis or fever
- Advance diet to low residue
- Zofran
- Stool studies if persistent diarrhea
# Nonischemic myocardial injury
# History of CAD status post stents
- Troponin 0.035, continue to trend
- EKG shows atrial sensed reticular paced rhythm with prolonged AV conduction, no ischemic changes visible
- Cardiology was notified who noted EKG looks similar to prior EKGs and patient has known RCA occlusion and not candidate for intervention
- Continue aspirin and statin
- Continue Coreg
- Continue isosorbide mononitrate
#Noncardiogenic Pulmonary Edema
-Status post IV Lasix, improved x-ray
-resume po diuretic
#?Dementia
-no evidence of metabolic disturbances causing this
-patient AAox2
-understands most things but doesnt understand year
-CM consulted
# Hyperglycemia secondary to infection/insulin noncompliance
# Type 2 diabetes
- Blood sugar 293
- Continue Lantus reduced dose, 10 units for now
- Insulin sliding scale
- Hold metformin
-aic 8.8
#Hypokalemia
Moderate and replete
#Essential hypertension
Hyperlipidemia
- Continue Zetia
CKD 2
- Renal function at baseline
BPH
- Dutasteride
- Continue terazosin
History of skin cancer
Anxiety/depression
- Continue venlafaxine
Full code
DVT prophylaxis�heparin
LRD
Anticipated Discharge: Within 24 hours
Subjective/Interval History
-
Date of Service: December 27, 2024
Symptoms improved, advancing diet
Objective Data
-
Labs:
Laboratory Results
12/27/24
09:20
WBC 8.3
Hgb 13.5
Hct 40.3
Plt Count 216
Sodium 135
Potassium 3.4 L
Chloride 104
Carbon Dioxide 25
BUN 25 H
Creatinine 1.3
Glucose 255 H
Calcium 9.9
Total Bilirubin 1.1
AST 24
ALT 27
Alkaline Phosphatase 77
Vital Signs:
Vital Signs
Temp Pulse Resp BP Pulse Ox
98.6 F 77 20 114/66 93
12/27/24 11:00 12/27/24 11:00 12/27/24 11:00 12/27/24 11:00 12/27/24 11:00
I&O
12/26/24 12/27/24 12/28/24
06:59 06:59 06:59
Intake Total 1140 / 1140 480 / 480
Balance 1140 / 1140 480 / 480
Review of Systems
-
History Source: Patient
All other systems: Not reviewed unless documented
Data Reviewed
-
Diagnostic Radiology: Report Reviewed by me
[2024-12-27] MEDS: KCL ELIXIR 40 MEQ PO (13:27)
--- NOTE | 2024-12-27 13:59 | CM ---
CM following re: discharge planning.
Reviewed pt's chart, met with pt and left a message to pt's niece Therese.
CM received a phone call from [facility] case management social worker Tabatha [phone] who investigates an allegation of self neglect. Requested pt's clinical faxed to [facility] [phone].
PT and OT evaluations noted -SNF level of care recommended. Pt is aware, expressed his not motivated feelings regarding rehab stating: 'how much I can improve at 84'. Encouragement with reassurance and change in talk approach, pt expressed his
agreement. Following SNFs preferred: [facility], [facility], [facility], [facility]. A referral to above SNFs made. Awaiting for determination.
D/C plan: preferred SNF.
CM will follow to assist pt with discharge to a preferred SNF.
[2024-12-27 15:00] VITALS: BP 115/69
--- NOTE | 2024-12-27 15:04 | PN.CDI ---
CDI
- -
CDI:
Physician Documentation Request
Admit Date: 12/25/24 20:15
Dear Doctor Lori
Patient presented with N/V/Diarrhea.
Progress notes include a diagnosis of noncardiogenic pulmonary edema. '-Status post IV Lasix, improved x-ray'
Please clarify which of the following accurately represents the acuity of the pulmonary edema.
____ Acute
Acute on Chronic
Chronic
____ Other
Use of terms such as suspected, likely, concern for, or probable (associated with a specific diagnosis that is being evaluated, monitored, or treated as if it exists) are acceptable and can be coded in the inpatient setting, when documented at the
time of discharge.
Thank you,
Virginia Latif RN, BSN
CDI Specialist
tiger text
Please use your independent medical judgment in providing your response.
[2024-12-27 17:48] LABS: Glucose - Point of Care 287 mg/dl (70-99)
[2024-12-27] MEDS: NOVOLOG FLEXPEN-LOW RESISTANCE 3 UNITS SC (17:48)
[2024-12-27 19:15] VITALS: BP 132/70
[2024-12-27 21:56] LABS: Glucose - Point of Care 264 mg/dl (70-99)
[2024-12-27] MEDS: EFFEXOR XR 75 MG PO (21:58)
[2024-12-27] MEDS: PROSCAR 5 MG PO (21:58)
[2024-12-27] MEDS: LANTUS 0.1 UNITS SC (21:59)
[2024-12-27 23:25] VITALS: BP 141/57
[2024-12-28 03:22] VITALS: BP 139/69
[2024-12-28] MEDS: ZOFRAN 4 MG IV ×2 (05:23→15:53)
[2024-12-28 07:00] VITALS: BP 152/76
[2024-12-28 07:33] LABS: Hematocrit 37.8 % (39.0-52.0); Hemoglobin 12.9 g/dL (13.0-18.0); Mean Corp Hgb Conc. 34.1 g/dL (33.0-37.0); Mean Corpuscular Volume 87.7 fL (80.0-94.0); Platelet Count 198 10^3/uL (130-400); Red Cell Dist. Width 13.2 % (11.5-14.5)
[2024-12-28 08:05] LABS: ALT (SGPT) 23 U/L (0-50); AST (SGOT) 21 U/L (17-59); Albumin 3.9 g/dl (3.5-5.0); Alkaline Phosphatase 74 U/L (38-126); Blood Urea Nitrogen 25 mg/dl (9-20); Calcium 9.5 mg/dl (8.4-10.2); Carbon Dioxide 24 mmol/L (22-30); Chloride 104 mmol/L (98-107); Estimated Creatinine Clearance 63 ml/min; Glucose 253 mg/dl (70-99); Potassium 3.5 mmol/L (3.5-5.1); Sodium 137 mmol/L (135-145); Total Protein 6.7 g/dl (6.3-8.2); eGFR > 60.00
[2024-12-28 08:12] LABS: Glucose - Point of Care 229 mg/dl (70-99)
[2024-12-28] MEDS: ELIQUIS 5 MG PO ×2 (08:23→20:26)
[2024-12-28] MEDS: SORBITRATE 30 MG PO (08:24)
[2024-12-28] MEDS: TRICOR 145 MG PO (08:24)
[2024-12-28] MEDS: FLOMAX 0.4 MG PO ×2 (08:24→20:26)
[2024-12-28] MEDS: ZESTRIL 20 MG PO (08:24)
[2024-12-28] MEDS: ZETIA 10 MG PO (08:24)
[2024-12-28] MEDS: EFFEXOR XR 150 MG PO (08:24)
[2024-12-28] MEDS: LASIX 40 MG PO (08:25)
[2024-12-28] MEDS: COREG 6.25 MG PO ×2 (08:25→20:26)
[2024-12-28] MEDS: NOVOLOG FLEXPEN-LOW RESISTANCE 2 UNITS SC (08:26)
[2024-12-28 11:00] VITALS: BP 112/60
[2024-12-28 12:29] LABS: Glucose - Point of Care 406 mg/dl (70-99)
--- NOTE | 2024-12-28 12:48 | W.PN.HOSP.TC ---
Today's Communication/Plan
-
medically clear
lrd
disposition planning, safety issue at home
Assessment / Plan
Assessment / Plan
Physical Exam
General: Well Developed, Well Nourished and No Apparent Distress
HEENT: NormoCephalic, Moist mucous membranes and Atraumatic
Respiratory: Clear
Cardiac: S1/S2 and Regular Rhythm; No Murmur or Rub
GI: Soft, Non Tender, Non Distended and Normal Bowel Sounds; No Organomegaly
Rectal: Deferred by Provider
Musculoskeletal: No Clubbing, No Cyanosis and No Edema
Skin: No Rash
Neuro: Nonfocal/grossly intact
PLAN:
# N/V/Diarrhea, resolved
- likely viral gastroenteritis
-F/u KUB�unremarkable for evidence of SBO or pneumoperitoneum
-abd nontender, nondistended
- Diarrhea resolved, tolerating diet
- Urinalysis unremarkable
-CT head shows no acute abnormality
- No signs of sepsis or fever
- low residue
- Zofran
- Stool studies if persistent diarrhea
# Nonischemic myocardial injury
# History of CAD status post stents
- Troponin 0.035, continue to trend
- EKG shows atrial sensed reticular paced rhythm with prolonged AV conduction, no ischemic changes visible
- Cardiology was notified who noted EKG looks similar to prior EKGs and patient has known RCA occlusion and not candidate for intervention
- Continue aspirin and statin
- Continue Coreg
- Continue isosorbide mononitrate
#Noncardiogenic Pulmonary Edema
-Status post IV Lasix, improved x-ray
-resume po diuretic
#?Dementia
-no evidence of metabolic disturbances causing this
-patient AAox2
-understands most things but doesnt understand year
-CM consulted
# Hyperglycemia secondary to infection/insulin noncompliance
# Type 2 diabetes
- Blood sugar 293
- Continue Lantus reduced dose, 10 units for now
- Insulin sliding scale
- Hold metformin
-[id number] 8.8
#Hypokalemia
Moderate and replete
#Essential hypertension
Hyperlipidemia
- Continue Zetia
CKD 2
- Renal function at baseline
BPH
- Dutasteride
- Continue terazosin
History of skin cancer
Anxiety/depression
- Continue venlafaxine
Full code
DVT prophylaxis�heparin
LRD
Anticipated Discharge: Today
Subjective/Interval History
-
Date of Service: December 28, 2024
nausea/diarrhea improved although did have small episode of vomiting this morning; belly nontender
Objective Data
-
Labs:
Laboratory Results
12/28/24 12/28/24
06:40 12:30
WBC 7.3
Hgb 12.9 L
Hct 37.8 L
Plt Count 198
Sodium 137
Potassium 3.5
Chloride 104
Carbon Dioxide 24
BUN 25 H
Creatinine 1.0
Glucose 253 H Pending
Calcium 9.5
Total Bilirubin 0.9
AST 21
ALT 23
Alkaline Phosphatase 74
Vital Signs:
Vital Signs
Temp Pulse Resp BP Pulse Ox
97 F 66 16 152/76 95
12/28/24 07:00 12/28/24 08:25 12/28/24 07:00 12/28/24 08:25 12/28/24 10:09
I&O
12/27/24 12/28/24 12/29/24
06:59 06:59 06:59
Intake Total 1140 / 1140 2490 / 2490
Balance 1140 / 1140 2490 / 2490
Review of Systems
-
History Source: Patient
All other systems: Not reviewed unless documented
Data Reviewed
-
Diagnostic Radiology: Report Reviewed by me
Labs: Labs Reviewed by me
[2024-12-28 13:37] LABS: Glucose 363 mg/dl (70-99)
[2024-12-28] MEDS: NOVOLOG FLEXPEN-LOW RESISTANCE 5 UNITS SC (13:51)
--- NOTE | 2024-12-28 14:16 | PTCARENOTE ---
Dr[facility]. Stat lab bs 363. Insulin given per protocol. no s/s of distress noted. Plan of care ongoing.
[2024-12-28 15:00] VITALS: BP 142/81
[2024-12-28 16:50] LABS: Glucose - Point of Care 321 mg/dl (70-99)
[2024-12-28] MEDS: NOVOLOG FLEXPEN-LOW RESISTANCE 4 UNITS SC (17:05)
[2024-12-28 19:15] VITALS: BP 128/81
[2024-12-28 21:28] LABS: Glucose - Point of Care 231 mg/dl (70-99)
[2024-12-28] MEDS: LANTUS 0.1 UNITS SC (22:37)
[2024-12-28] MEDS: PROSCAR 5 MG PO (22:37)
[2024-12-28] MEDS: EFFEXOR XR 75 MG PO (22:37)
[2024-12-28 23:03] VITALS: BP 153/87
[2024-12-29 03:20] VITALS: BP 130/77
[2024-12-29 07:26] VITALS: BP 145/80
[2024-12-29] MEDS: TRICOR 145 MG PO (08:21)
[2024-12-29] MEDS: ELIQUIS 5 MG PO ×2 (08:21→19:52)
[2024-12-29] MEDS: LASIX 40 MG PO (08:21)
[2024-12-29] MEDS: FLOMAX 0.4 MG PO ×2 (08:21→19:52)
[2024-12-29] MEDS: EFFEXOR XR 150 MG PO (08:21)
[2024-12-29] MEDS: ZESTRIL 20 MG PO (08:21)
[2024-12-29] MEDS: COREG 6.25 MG PO ×2 (08:21→19:52)
[2024-12-29] MEDS: ZETIA 10 MG PO (08:21)
[2024-12-29] MEDS: SORBITRATE 30 MG PO (08:21)
[2024-12-29] MEDS: NOVOLOG FLEXPEN-LOW RESISTANCE 3 UNITS SC (08:29)
[2024-12-29 08:30] LABS: Glucose - Point of Care 250 mg/dl (70-99)
--- NOTE | 2024-12-29 10:38 | W.PN.HOSP.TC ---
Addendum entered and electronically signed by Paco Sandoval MD 12/29/24 13:04:
Acute noncardiogenic pulmonary edema
Addendum entered and electronically signed by Paco Sandoval MD 12/29/24 11:09:
plan for dc tomorrow
Original Note:
Today's Communication/Plan
-
Follow-up cardiology, PCP outpatient
Benefits from psychiatrist to evaluate possible dementia
Assessment / Plan
Assessment / Plan
Physical Exam
General: Well Developed, Well Nourished and No Apparent Distress
HEENT: NormoCephalic, Moist mucous membranes and Atraumatic
Respiratory: Clear
Cardiac: S1/S2 and Regular Rhythm; No Murmur or Rub
GI: Soft, Non Tender, Non Distended and Normal Bowel Sounds; No Organomegaly
Rectal: Deferred by Provider
Musculoskeletal: No Clubbing, No Cyanosis and No Edema
Skin: No Rash
Neuro: Nonfocal/grossly intact
PLAN:
# N/V/Diarrhea, resolved
- likely viral gastroenteritis
-F/u KUB�unremarkable for evidence of SBO or pneumoperitoneum
-abd nontender, nondistended
- Diarrhea resolved, tolerating diet
- Urinalysis unremarkable
-CT head shows no acute abnormality
- No signs of sepsis or fever
- low residue
- Zofran
# Nonischemic myocardial injury
# History of CAD status post stents
- Troponin 0.035, continue to trend
- EKG shows atrial sensed reticular paced rhythm with prolonged AV conduction, no ischemic changes visible
- Cardiology was notified who noted EKG looks similar to prior EKGs and patient has known RCA occlusion and not candidate for intervention
- Continue aspirin and statin
- Continue Coreg
- Continue isosorbide mononitrate
�Can follow-up with cardiology outpatient
#Noncardiogenic Pulmonary Edema
-Status post IV Lasix, improved x-ray
-resume po diuretic
#?Dementia
-no evidence of metabolic disturbances causing this
-patient AAox2
-understands most things but doesnt understand year
-CM consulted
� Follow-up outpatient
# Hyperglycemia secondary to infection/insulin noncompliance
# Type 2 diabetes
- Blood sugar 293
- Continue Lantus reduced dose, 10 units for now
- Insulin sliding scale
- Hold metformin
-[id number] 8.8
#Hypokalemia
Moderate and replete
#Essential hypertension
Hyperlipidemia
- Continue Zetia
CKD 2
- Renal function at baseline
BPH
- Dutasteride
- Continue terazosin
History of skin cancer
Anxiety/depression
- Continue venlafaxine
Full code
DVT prophylaxis�heparin
LRD
More than 30 minutes spent in discharge including
Final examination of the patient
Summarizing hospital stay
Instructions for continuing care to all relevant caregivers
Preparation of discharge records, prescriptions, and referral forms
Total time spent (in minutes): 36
Anticipated Discharge: Today
Subjective/Interval History
-
Date of Service: December 29, 2024
Tolerating diet, no nausea or vomiting. No diarrhea
Objective Data
-
Labs:
Laboratory Results
12/29/24
09:14
WBC Pending
Hgb Pending
Hct Pending
Plt Count Pending
Sodium Pending
Potassium Pending
Chloride Pending
Carbon Dioxide Pending
BUN Pending
Creatinine Pending
Glucose Pending
Calcium Pending
Total Bilirubin Pending
AST Pending
ALT Pending
Alkaline Phosphatase Pending
Vital Signs:
Vital Signs
Temp Pulse Resp BP Pulse Ox
97.6 F 69 16 145/80 92
12/29/24 07:26 12/29/24 07:26 12/29/24 07:26 12/29/24 07:26 12/29/24 07:26
I&O
12/28/24 12/29/24 12/30/24
06:59 06:59 06:59
Intake Total 2490 / 2490 1200 / 1200
Balance 2490 / 2490 1200 / 1200
Review of Systems
-
History Source: Patient
All other systems: Not reviewed unless documented
Data Reviewed
-
Diagnostic Radiology: Report Reviewed by me
Labs: Labs Reviewed by me
--- NOTE | 2024-12-29 10:40 | W.DS.TRANS ---
DC Summary - Senior Developer
-
Discharge Instructions:
Discharge Diagnosis/Procedures Viral gastroenteritis
Diet Low Residue
Activity As tolerated
Blood Work CBC and BMP in 5 to 7 days
Instructions:
Stand-Alone Forms:
Changes to Home Medications: No
Discharge Medications:
DC Medications w/original date entered in [facility]
dutasteride 0.5 mg capsule 0.5 mg PO HS 07/14/13
fenofibric acid (choline) 135 mg capsule,delayed release 135 mg PO DAILY 07/14/13
nitroglycerin 0.4 mg sublingual tablet 0.4 mg sublingual [id number] PRN chest pain 07/14/13
benazepril 20 mg tablet 20 mg PO DAILY ##0 05/19/21
eszopiclone 2 mg tablet (Lunesta) 2 mg PO HSPRN PRN sleep 05/19/21
ezetimibe 10 mg tablet (Zetia) 10 mg PO DAILY 05/19/21
insulin aspart U-100 100 unit/mL subcutaneous solution (Novolog U-100 Insulin aspart) 14 unit SC DAILY ##0 05/19/21
insulin glargine 100 unit/mL subcutaneous solution (Lantus U-100 Insulin) 23 unit SC DAILY 05/19/21
venlafaxine 150 mg capsule,extended release 24 hr (Effexor XR) 150 mg PO DAILY taken w/ 75mg = 225mg 05/19/21
carvedilol 6.25 mg tablet 6.25 mg PO BID #180 tabs 07/01/21
insulin aspart U-100 100 unit/mL subcutaneous solution (Novolog U-100 Insulin aspart) 4 unit SC QPM ##0 07/01/21
apixaban 5 mg tablet (Eliquis) 5 mg PO BID 12/26/24
furosemide 20 mg tablet 40 mg PO DAILY 12/26/24
isosorbide dinitrate 30 mg tablet 30 mg PO DAILY 12/26/24
metformin 1,000 mg tablet 1,000 mg PO BID 12/26/24
tamsulosin 0.4 mg capsule 0.4 mg PO BID 12/26/24
venlafaxine 75 mg capsule,extended release 24 hr 75 mg PO HS taken w/ 150mg = 225mg 12/26/24
Home Medication Changes
na
Pending Results: No
[2024-12-29 10:41] LABS: Hematocrit 37.3 % (39.0-52.0); Hemoglobin 12.5 g/dL (13.0-18.0); Mean Corp Hgb Conc. 33.5 g/dL (33.0-37.0); Mean Corpuscular Volume 89.0 fL (80.0-94.0); Platelet Count 218 10^3/uL (130-400); Red Cell Dist. Width 13.3 % (11.5-14.5)
[2024-12-29 11:08] LABS: Glucose - Point of Care 264 mg/dl (70-99)
[2024-12-29 11:08] LABS: ALT (SGPT) 23 U/L (0-50); AST (SGOT) 21 U/L (17-59); Albumin 3.8 g/dl (3.5-5.0); Alkaline Phosphatase 76 U/L (38-126); Blood Urea Nitrogen 25 mg/dl (9-20); Calcium 9.2 mg/dl (8.4-10.2); Carbon Dioxide 26 mmol/L (22-30); Chloride 101 mmol/L (98-107); Estimated Creatinine Clearance 58 ml/min; Glucose 241 mg/dl (70-99); Potassium 3.6 mmol/L (3.5-5.1); Sodium 136 mmol/L (135-145); Total Protein 6.4 g/dl (6.3-8.2); eGFR > 60.00
[2024-12-29 11:10] VITALS: BP 112/65
[2024-12-29] MEDS: FLUZONE HIGH-DOSE 2025-26 0.5 ML IM (11:36)
[2024-12-29] MEDS: ZOFRAN 4 MG IV ×2 (12:22→19:18)
[2024-12-29 12:26] LABS: Glucose - Point of Care 320 mg/dl (70-99)
[2024-12-29] MEDS: NOVOLOG FLEXPEN-LOW RESISTANCE 4 UNITS SC (12:26)
--- NOTE | 2024-12-29 12:28 | PTCARENOTE ---
Patient having N/V/D after breakfast. No able to get stool sample due to patient missing hat. made aware. CAT ABD ordered with PO contrast. PRN IV Zofran administered.
[2024-12-29] MEDS: OMNIPAQUE 50 ML PO (12:39)
[2024-12-29 15:39] VITALS: BP 148/91
--- NOTE | 2024-12-29 16:09 | PTCARENOTE ---
Patient with N/V down at CT Scan. Patient unable to lay flat due to N/V. Cat scan was not able to be done.
[2024-12-29 16:46] LABS: Glucose - Point of Care 247 mg/dl (70-99)
[2024-12-29] MEDS: NOVOLOG FLEXPEN-LOW RESISTANCE 2 UNITS SC (17:17)
[2024-12-29 19:39] VITALS: BP 136/74
[2024-12-29 21:29] LABS: Glucose - Point of Care 254 mg/dl (70-99)
[2024-12-29] MEDS: PROSCAR 5 MG PO (22:36)
[2024-12-29] MEDS: LANTUS 0.1 UNITS SC (22:36)
[2024-12-29] MEDS: EFFEXOR XR 75 MG PO (22:36)
[2024-12-29 23:03] VITALS: BP 144/87
[2024-12-30 03:09] VITALS: BP 142/87
[2024-12-30] MEDS: ZOFRAN 4 MG IV (03:41)
[2024-12-30 07:20] VITALS: BP 147/84
[2024-12-30 07:40] LABS: Hematocrit 38.6 % (39.0-52.0); Hemoglobin 13.1 g/dL (13.0-18.0); Mean Corp Hgb Conc. 33.9 g/dL (33.0-37.0); Mean Corpuscular Volume 86.5 fL (80.0-94.0); Platelet Count 196 10^3/uL (130-400); Red Cell Dist. Width 13.2 % (11.5-14.5)
[2024-12-30] MEDS: COREG 6.25 MG PO (08:14)
[2024-12-30] MEDS: EFFEXOR XR 150 MG PO (08:14)
[2024-12-30] MEDS: FLOMAX 0.4 MG PO (08:14)
[2024-12-30] MEDS: TRICOR 145 MG PO (08:14)
[2024-12-30] MEDS: ZETIA 10 MG PO (08:14)
[2024-12-30] MEDS: ELIQUIS 5 MG PO (08:14)
[2024-12-30] MEDS: SORBITRATE 30 MG PO (08:14)
[2024-12-30] MEDS: LASIX 40 MG PO (08:15)
[2024-12-30] MEDS: ZESTRIL 20 MG PO (08:15)
[2024-12-30 08:19] LABS: ALT (SGPT) 24 U/L (0-50); AST (SGOT) 19 U/L (17-59); Albumin 3.8 g/dl (3.5-5.0); Alkaline Phosphatase 82 U/L (38-126); Blood Urea Nitrogen 21 mg/dl (9-20); Calcium 9.5 mg/dl (8.4-10.2); Carbon Dioxide 27 mmol/L (22-30); Chloride 102 mmol/L (98-107); Estimated Creatinine Clearance 63 ml/min; Glucose 220 mg/dl (70-99); Potassium 3.3 mmol/L (3.5-5.1); Sodium 133 mmol/L (135-145); Total Protein 6.7 g/dl (6.3-8.2); eGFR > 60.00
[2024-12-30 08:27] LABS: Glucose - Point of Care 212 mg/dl (70-99)
[2024-12-30] MEDS: NOVOLOG FLEXPEN-LOW RESISTANCE 2 UNITS SC (08:29)
[2024-12-30 10:11] VITALS: BP 116/56
--- NOTE | 2024-12-30 10:40 | CM ---
CM following re: discharge planning.
Reviewed pt's chart, met with pt, met with pt's niece Love yesterday and spoke to niece Therese today to update on discharge plan progress.
According to pt is medically stable to be discharged today.
Pt's niece Love yesterday requested [facility] and per [facility] liaison [facility] did not have abed available yesterday and she confirmed that [facility] has a bed available today and pt is accepted for admission today.
Pt and her nieces are aware, expressed their agreement. IMM reviewed, placed on chart, pt has a copy.
CM called [facility] rehabilitation case coordinator Tabatha [phone] to notify her of pt's discharge to [facility] and she will follow up.
arranged ambulance transport with oyster picker time 2:00 p.m. [facility] completed and left with .
Both pt, his niece Therese and [facility] liaison are aware of discharge time.
[facility] nursing report: [phone]
Discharge instructions fax: [phone]
D/C plan: [facility]
--- NOTE | 2024-12-30 10:52 | W.DCSUMMARY ---
Discharge Summary
Discharge Data
Date of Admission: 12/25/24
Date of Discharge: 12/30/24
-
Pending Results: No
Hospital Course
Primary diagnosis:
Acute gastroenteritis
Nonischemic myocardial injury
Secondary diagnosis:
History of coronary disease status post prior coronary stents
Diabetes mellitus type 2 with hemoglobin A1c 7.8
Essential hypertension
Benign prostatic hypertrophy
Hospital course:
Patient presented with acute onset of nausea vomiting and diarrhea. They found him in extreme dirty and poor condition with feces everywhere. Medically he had 5 days of vomiting and diarrhea which was watery and yellow in color. No abdominal
pain. He had further evaluation here including a CT of the abdomen pelvis. He had a spontaneous improvement of nausea vomiting and no further diarrhea here. We did not have diarrheal stools to check for stool culture. His white count was normal.
CT of the abdomen pelvis showed underdistention versus segmental mild colonic wall thickening in the transverse colon. He had no tenderness along the transverse colon. He had no chronic diarrheal illness. I suspect this more under distention.
Clinical scenario is suspicious for acute gastroenteritis which is self-limiting.
He had a troponin elevation in indeterminate range without chest pain. [place] to have a nonischemic myocardial injury. A sensed V paced rhythm. Cardiology was notified who noted EKG looks similar to prior EKGs and patient has known RCA occlusion
and not candidate for intervention. Continue aspirin and statin. Continue Coreg. Continue isosorbide mononitrate.Can follow-up with cardiology outpatient. There was questions raised about pulmonary edema on the chest x-ray because of increased
interstitial markings but he was not symptomatic or hypoxic. He is normally on diuretics unsure with his complaince. He was given 1 IV dose of diuretics and continued on home dose afterwards.
Today he was tolerating diet. No emesis. He had 1 small loose stool. No abdominal pain. Abdomen was soft and nontender. Afebrile. Pulse 66. Blood pressure 147/84. Chest was clear today. Not hypoxic.
PT recommends rehab. Patient agreeable. Medically stable for discharge to rehab today.
Portions of this chart may have been created with voice recognition software. Occasional wrong word or 'sound alike' substitutions may have occurred due to the inherent limitations of voice recognition software.
Discharge Plan
-
Patient Disposition: Fpc/SNF
Discharge Diagnosis/Procedures: Acute gastroenteritis
Condition: Fair
Diet: Regular
Activity: As tolerated
Driving Restrictions: Not until seen by your Dr
Other Services: PT and OT
Referrals:
Cardiology, provider [Other] - in one to two weeks
Neuropsychiatrist [Other]
Referral Note: Dementia/memory evaluation if not done by PCP
Prescriptions:
Continued
nitroglycerin 0.4 MG tablet, sublingual
0.4 mg sublingual [id number] PRN (Reason: chest pain)
dutasteride 0.5 MG capsule
0.5 mg PO HS
fenofibric acid (choline) 135 MG capsule,delayed release(DR/EC)
135 mg PO DAILY
insulin glargine [Lantus U-100 Insulin] 100 UNIT/ML solution
23 unit SC DAILY
venlafaxine [Effexor XR] 150 MG capsule,extended release 24hr
150 mg PO DAILY
insulin aspart U-100 [Novolog U-100 Insulin aspart] 100 unit/mL Solution
14 unit SC DAILY Qty: 0
benazepril 20 mg Tablet
20 mg PO DAILY Qty: 0
ezetimibe [Zetia] 10 MG tablet
10 mg PO DAILY
eszopiclone [Lunesta] 2 MG tablet
2 mg PO HSPRN PRN (Reason: sleep)
insulin aspart U-100 [Novolog U-100 Insulin aspart] 100 unit/mL Solution
4 unit SC QPM Qty: 0
carvedilol 6.25 MG tablet
6.25 mg PO BID Qty: 180 5RF
venlafaxine 75 mg capsule,extended release 24hr
75 mg PO HS
isosorbide dinitrate 30 mg tablet
30 mg PO DAILY
tamsulosin 0.4 mg capsule
0.4 mg PO BID
metformin 1,000 mg tablet
1,000 mg PO BID
furosemide 20 mg tablet
40 mg PO DAILY
Eliquis 5 mg tablet
5 mg PO BID
Discharge Orders:
Discharge Patient (As Directed); Ordered 12/30/24
Ordered By: José Miguel Valdivia
Discharge Date and Time
Print Language: THAI
[2024-12-30 11:10] LABS: Glucose - Point of Care 314 mg/dl (70-99)
[2024-12-30 11:22] VITALS: BP 99/65
[2024-12-30] MEDS: NOVOLOG FLEXPEN-LOW RESISTANCE 4 UNITS SC (11:46)
[2024-12-30] MEDS: KCL 40 MEQ PO (11:49)
--- NOTE | 2024-12-30 13:08 | PTCARENOTE ---
RN attempted to call report to [phone]. when transferred to floor extension, was on hold and then disconnected. chart note being written at this time incase of no callback from facility.
[2024-12-30 13:53] VITALS: BP 126/69
== END 2024-12-30 14:20 | DRG 391 ==
LOC: 2 NORTH 20:15
PROVIDERS: Internal Medicine; Nurse Practitioner; ADMITTING PHYSICIAN Hospitalist; ATTENDING PHYSICIAN Internal Medicine; EMERGENCY PHYSICIAN Student in an Organized Health Care Education/Training Program; FAMILY PHYSICIAN Family Medicine
PROC: 3E02340 Introduction of Influenza Vaccine into Muscle, Percutaneous Approach (ICD-10-PCS; 2024-12-29)
DX: A08.4 Viral intestinal infection, unspecified (principal); J81.0 Acute pulmonary edema; I5A Non-ischemic myocardial injury (non-traumatic); R62.7 Adult failure to thrive; I12.9 Hypertensive chronic kidney disease with stage 1 through stage 4 chronic kidney disease, or unspecified chronic kidney disease; N18.2 Chronic kidney disease, stage 2 (mild); E11.22 Type 2 diabetes mellitus with diabetic chronic kidney disease; E78.00 Pure hypercholesterolemia, unspecified; E11.65 Type 2 diabetes mellitus with hyperglycemia; Z79.4 Long term (current) use of insulin; Z91.148 Patient's other noncompliance with medication regimen for other reason; N40.0 Benign prostatic hyperplasia without lower urinary tract symptoms; F32.A Depression, unspecified; F41.9 Anxiety disorder, unspecified; E87.6 Hypokalemia; Z23 Encounter for immunization
CPT/HCPCS: 70450; 71046; 74022; 74177; 80053; 81003; 81015; 82550; 82947; 82962; 83036; 84484; 85025; 85027; 90662; 93005; 93306; 97163; 97530; G0008; Q9967